=== PATIENT | female | born 1955 | race Caucasian/White ===

== ENCOUNTER 2016-05-09 19:46 | Inpatient (IN) | payer OTHER ==
[2016-05-09 20:26] VITALS: BMI 21.1
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
[2016-05-09] MEDS ORDERED: guaiFENesin/D-METHORPHAN HB 10 ML UNIT-DOSE CUPS PO PRN (21:09)
[2016-05-09] MEDS ORDERED: diazePAM 5 MG TABLET PO PRN (21:09)
[2016-05-09] MEDS ORDERED: MENTHOL/PHENOL 1 EACH UD MM PRN (21:09)
[2016-05-09] MEDS ORDERED: diazePAM 5 MG TABLET PO ONE (21:09)
[2016-05-09] MEDS ORDERED: ACETAMINOPHEN 325 MG TABLET (FP) PO PRN (21:09)
[2016-05-09] MEDS ORDERED: MAG HYDROX/AL HYDROX/SIMETH 30 ML UNIT-DOSE CUP PO PRN (21:09)
[2016-05-09] MEDS ORDERED: LOPERAMIDE HCL 2 MG CAPSULE PO PRN (21:09)
[2016-05-09] MEDS ORDERED: MAGNESIUM HYDROX 2400MG/30ML ORAL SUSPENSION 30 ML CUP PO PRN (21:09)
[2016-05-09] MEDS ORDERED: MAGNESIUM CITRATE 300 ML BOTTLE PO PRN (21:09)
[2016-05-09] MEDS ORDERED: METHADONE HCL 10 MG TABLET (FOR DETOX USE ONLY) PO ONE ×2 (21:09→23:00)
[2016-05-09] MEDS ORDERED: P-EPHED 60MG/TRIPROLIDI 2.5MG TABLET PO PRN (21:09)
[2016-05-09] MEDS ORDERED: [UNRECOGNIZED DRUG - OTHER] PO PRN (21:18)
[2016-05-09] MEDS ORDERED: ONDANSETRON *ODT* 4 MG TABLET SL PRN (21:19)
[2016-05-09] MEDS ORDERED: [UNRECOGNIZED DRUG - SUPPLY] MC SCH (22:00)
[2016-05-09] MEDS ORDERED: RANITIDINE HCL 150 MG TABLET (FP) PO SCH (22:00)
[2016-05-09] MEDS ORDERED: THIAMINE HCL 100 MG TABLET (FP) PO SCH (22:00)
[2016-05-09] MEDS: diazePAM 5 MG TABLET PO SCH (22:15)
[2016-05-10] MEDS ORDERED: TRIMETHOBENZAMIDE HCL 200MG/2ML INJ IM PRN (01:40)
[2016-05-10] MEDS: diazePAM 5 MG TABLET PO SCH (06:01)
[2016-05-10] MEDS ORDERED: LEVOTHYROXINE NA 75 MCG TABLET (FP) PO SCH (07:00)
[2016-05-10] MEDS ORDERED: LEVOTHYROXINE NA 25 MCG TABLET (FP) PO SCH (07:00)
[2016-05-10] MEDS ORDERED: PRENATAL VITAMINS W/ FOLIC ACID TABLET (FP) PO SCH (10:00)
[2016-05-10] MEDS ORDERED: METHADONE HCL 10 MG TABLET (FOR DETOX USE ONLY) PO SCH (10:00)
[2016-05-10 10:17] LABS: MCH 30.1 pg (25.7-33.7); MCHC 33.5 g/dl (32.0-36.0); MEAN CELL VOLUME 89.8 fl (80-96); MEAN PLT VOLUME 8.9 fl (7.5-11.1); PLATELET COUNT 231 K/MM3 (134-434); RDW 12.6 % (11.6-15.6); WHITE BLOOD COUNT 9.3 K/mm3 (4.0-10.0)
[2016-05-10 10:33] LABS: ALBUMIN 3.9 g/dl (3.4-5.0); ALK PHOS 97 U/L (45-117); ANION GAP 8 (8-16); BILIRUBIN,TOTAL 0.8 mg/dL (0.2-1.0); CO2 28 mmol/L (21-32); CREATININE 0.8 mg/dL (0.55-1.02); GLUCOSE,RANDOM 145 mg/dL (74-106); SGOT/AST 29 U/L (15-37); SGPT/ALT 41 U/L (12-78); TOT PROT 6.7 g/dl (6.4-8.2)
[2016-05-10 11:30] VITALS: BP 99/60; PULSE 68; TEMP 98.1
--- NOTE | 2016-05-10 12:47 | DS ---
[facility] Detox Discharge Summary Admission Date: 05/09/16 Discharge Date: 05/10/16 - History Present History: Opioid Dependence Pertinent Past History: Gastritis, thyroid disorder - Physical Exam Results Vital Signs: Vital Signs Temperature 98.1 F 05/10/16 10:00 Pulse Rate 68 05/10/16 10:00 Respiratory Rate 18 05/10/16 10:00 Blood Pressure 99/60 05/10/16 10:00 O2 Sat by Pulse Oximetry (%) Pertinent Admission Physical Exam Findings: withdrawal sx Laboratory Last Values WBC 9.3 K/mm3 (4.0-10.0) 05/10/16 07:40 RBC 4.01 M/mm3 (3.60-5.2) 05/10/16 07:40 Hgb 12.1 GM/dL (10.7-15.3) 05/10/16 07:40 Hct 36.1 % (32.4-45.2) 05/10/16 07:40 MCV 89.8 fl (80-96) 05/10/16 07:40 MCHC 33.5 g/dl (32.0-36.0) 05/10/16 07:40 RDW 12.6 % (11.6-15.6) 05/10/16 07:40 Plt Count 231 K/MM3 (134-434) 05/10/16 07:40 MPV 8.9 fl (7.5-11.1) 05/10/16 07:40 Sodium 141 mmol/L (136-145) 05/10/16 07:40 Potassium 4.5 mmol/L (3.5-5.1) 05/10/16 07:40 Chloride 105 mmol/L (98-107) 05/10/16 07:40 Carbon Dioxide 28 mmol/L (21-32) 05/10/16 07:40 Anion Gap 8 (8-16) 05/10/16 07:40 BUN 15 mg/dL (7-18) 05/10/16 07:40 Creatinine 0.8 mg/dL (0.55-1.02) 05/10/16 07:40 Creat Clearance w eGFR > 60 (>60) 05/10/16 07:40 Random Glucose 145 mg/dL (74-106) H 05/10/16 07:40 Calcium 9.0 mg/dL (8.5-10.1) 05/10/16 07:40 Total Bilirubin 0.8 mg/dL (0.2-1.0) 05/10/16 07:40 AST 29 U/L (15-37) 05/10/16 07:40 ALT 41 U/L (12-78) 05/10/16 07:40 Alkaline Phosphatase 97 U/L (45-117) 05/10/16 07:40 Total Protein 6.7 g/dl (6.4-8.2) 05/10/16 07:40 Albumin 3.9 g/dl (3.4-5.0) 05/10/16 07:40 Labs noted - Medication Discharge Medications: Ambulatory Orders Eletriptan Hydrobromide [Relpax -] 40 mg PO ONCE PRN 05/09/16 Levothyroxine [Synthroid -] 75 mcg PO DAILY 05/09/16 Topical Cream Metered-Dose Dev [Topi-Click] 2 each MC BID 05/09/16 - Diagnosis (1) GERD (gastroesophageal reflux disease) Status: Acute Qualifiers: Esophagitis presence: without esophagitis Qualified Code(s): K21.9 - Gastro-esophageal reflux disease without esophagitis (2) Hypothyroid Status: Chronic Qualifiers: Hypothyroidism type: acquired Qualified Code(s): E03.9 - Hypothyroidism, unspecified (3) Insomnia secondary to depression with anxiety Status: Acute (4) Opioid dependence with withdrawal Status: Acute - AMA Did Patient Leave Against Medical Advice: Yes
--- NOTE | 2016-05-10 21:04 | EKG ---
Test Reason : Blood Pressure : / mmHG Vent. Rate : 059 BPM Atrial Rate : 059 BPM P-R Int : 130 ms QRS Dur : 072 ms QT Int : 422 ms P-R-T Axes : 071 055 044 degrees QTc Int : 417 ms SINUS BRADYCARDIA SEPTAL INFARCT , AGE UNDETERMINED ABNORMAL ECG WHEN COMPARED WITH ECG OF 04-OCT-2001 11:58, SEPTAL INFARCT IS NOW PRESENT NONSPECIFIC T WAVE ABNORMALITY NOW EVIDENT IN ANTERIOR LEADS Confirmed by MARGY CASTILLO, RICK ([id number]) on 05/10/2016 9:04:27 PM Referred By: Confirmed By:RICK JI MD
[2016-05-11] MEDS ORDERED: diazePAM 5 MG TABLET PO SCH (10:00)
[2016-05-11] MEDS ORDERED: METHADONE HCL 5 MG TABLET (FOR DETOX USE ONLY) PO SCH (10:00)
[2016-05-13] MEDS ORDERED: METHADONE HCL 10 MG TABLET (FOR DETOX USE ONLY) PO SCH (10:00)
[2016-05-13] MEDS ORDERED: diazePAM 5 MG TABLET PO SCH (10:00)
[2016-05-14] MEDS ORDERED: METHADONE HCL 5 MG TABLET (FOR DETOX USE ONLY) PO SCH (06:00)
== END 2016-05-10 10:35 | disposition left against medical advice (07) | DRG 894 ==
LOC: YASAS 19:46 → Y6N 21:08
PROVIDERS: ADMIT Internal Medicine; ATTEND Internal Medicine
PROC: HZ2ZZZZ Detoxification Services for Substance Abuse Treatment (ICD-10-PCS; principal; 2016-05-09)
DX: F11.23 Opioid dependence with withdrawal (principal); F13.230 Sedative, hypnotic or anxiolytic dependence with withdrawal, uncomplicated; F51.05 Insomnia due to other mental disorder; K21.9 Gastro-esophageal reflux disease without esophagitis; E03.9 Hypothyroidism, unspecified; M25.50 Pain in unspecified joint; N95.9 Unspecified menopausal and perimenopausal disorder; Z87.891 Personal history of nicotine dependence; Z87.898 Personal history of other specified conditions
CPT/HCPCS: 36415; 80053; 85027; 86593; 93005; 93010